=== PATIENT | female | born 1985 | race Caucasian/White ===

== ENCOUNTER 2018-07-14 06:23 | Day surgery (SDC) | payer OTHER ==
[2018-07-14] MEDS ORDERED: Ringers Lactate 1,000 ML IV ONE ×2 (06:52→09:10)
[2018-07-14] MEDS ORDERED: CEFOXITIN/SWI 1gm 1 GM/10 ML SYR ONE (06:52)
[2018-07-14] MEDS ORDERED: FENTANYL CITR 100 MCG/2 ML ONE ×2 (07:33→08:17)
[2018-07-14] MEDS ORDERED: ROCURONIUM 50 MG/5 ML VIAL IV ONE (07:33)
[2018-07-14] MEDS ORDERED: PROPOFOL 200 MG/20 ML VIAL IV ONE (07:33)
[2018-07-14] MEDS ORDERED: MIDAZOLAM HCL 2 MG/2 ML INJ ONE (07:34)
[2018-07-14] MEDS ORDERED: LIDOCAINE 1% MPF 5 ML VIAL ONE (07:34)
--- NOTE | 2018-07-14 07:39 | P.HP ---
Certification for Inpatient Patient admitted to: Observation With expected LOS: <2 Midnights Patient will require the following post-hospital care: None Practitioner: I am a practitioner with admitting privileges, knowledge of patient current condition, hospital course, and medical plan of care. Services: Services provided to patient in accordance with Admission requirements found in Title 42 Section 412.3 of the Code of Federal Regulations Patient History Date of Service: 07/14/18 History of Present Illness: This 32-year-old female presents for elective laparoscopic cholecystectomy with intraoperative cholangiogram. Allergies No Known Drug Allergies Allergy (Verified 07/14/18 07:12) Unknown Home Medications: Buproprion S.r. [Wellbutrin SR] 150 mg PO DAILY 07/13/18 - Past Medical/Surgical History Past Medical History: Patient denies medical history - Social History Alcohol use: No CD- Drugs: No Caffeine use: Yes Review of Systems 10-point ROS is otherwise unremarkable Physical Examination - Vital Signs Temperature: 99.2 F Blood Pressure: 104/72 Pulse: 81 Respirations: 16 - Physical Exam General: Alert HEENT: Sclerae nonicteric Respiratory: Clear to auscultation bilaterally Cardiovascular: Normal S1 S2 (Patient has mild right upper quadrant and epigastric discomfort but no guarding or rebound. Negative Lockett's sign) - Studies Imagings Data: Has documented chronic cholecystitis Assessment and Plan - Plan This patient has chronic cholecystitis. I will take her to the operating room for laparoscopic cholecystectomy with intraoperative cholangiogram. The risks of this procedure have been discussed. The possibility of bleeding, infection, injury to bile ducts blood vessels and intestines has been described. The possible need for an open and/or further surgeries and procedures was discussed. She understands and wants us to proceed. Discharge Plan: Home Plan to discharge in: 24 Hours - Advance Directives Does patient have a Living Will: Yes Does patient have a Durable POA for Healthcare: No
[2018-07-14] MEDS ORDERED: DEXAMETHASONE 10 MG/ML VIAL ONE (07:56)
[2018-07-14] MEDS ORDERED: GLYCOPYRROLATE 0.2 MG/ML SYR ONE ×2 (08:30)
[2018-07-14] MEDS ORDERED: NEOSTIGMINE 1 MG/ML -10 ML VIAL ONE (08:30)
[2018-07-14] MEDS ORDERED: KETOROLAC 30 MG/ML INJ ONE (08:30)
[2018-07-14] MEDS ORDERED: ONDANSETRON 4 MG/2 ML VIAL ONE (08:30)
--- NOTE | 2018-07-14 08:45 | P.OP ---
Preoperative diagnosis: Cholecystitis Postoperative diagnosis: The same Primary procedure: Laparoscopic cholecystectomy Secondary procedure: Intraoperative cholangiogram Anesthesia: General Estimated blood loss: Less than 10 cc Specimen: 1 gallbladder and contents Operative Technique: The patient was brought to the operating room placed supine on the table. After the induction of adequate general endotracheal anesthesia, the area of the abdomen was prepped with a DuraPrep solution, and she was draped in usual aseptic manner. A subumbilical incision was made. This brought down through the skin and subcutaneous tissue. The Visiport was now used to enter the peritoneal cavity. A pneumoperitoneum was created to a pressure of 12 mm of mercury. Under direct vision a 5 mm trocar was placed in the upper midline, and 2 other 5 mm trocars on the right lateral side of the abdomen. The patient having mean placed in reverse Trendelenburg and rolled to the left we could now see the right upper quadrant. We could see a chronically inflamed gallbladder. A grasper was placed on the fundus. After elevating the liver another was placed down by Abram's pouch. Applying lateral traction we were able to dissect down and expose the cystic duct and artery. Having obtained the critical view a clip was placed between the gallbladder and the cystic duct. An opening was made into the cystic duct through which we obtained a normal intraoperative cholangiogram. Our initial film showed the balloon in the common bile duct and on deflating the balloon were able to easily filled extrahepatic biliary tree the catheter was removed. Clips were placed on the distal portion of the cystic duct. The cystic artery was clipped and divided as well. At this point the gallbladder was now dissected free from the liver bed, placed into an Endo- Catch and brought out through the umbilical trocar site. With a 5 mm trocar in the upper portion of the abdomen under direct vision we were able to approximate the facile defect at the umbilicus. This was then using the Endo Close an absorbable suture. The anterior abdominal wall was blocked with 0.25% Marcaine. The irrigating fluid was aspirated from the peritoneal cavity, the pneumoperitoneum was collapsed, and shanna were applied to the skin. At the end of the procedure she was stable when sent to the recovery room. Needle sponge instrument count were correct. No drains were placed. Complications: None Transferred to: Recovery Room Condition: Good
[2018-07-14] MEDS: HYDROMORPHONE HCL 1 MG/ML INJ ONE ×3 (08:56→09:04)
[2018-07-14] MEDS: PROMETHAZINE 25 MG/ML VIAL ONE ×2 (08:59→09:04)
[2018-07-14 09:13] VITALS: O2SAT 100
[2018-07-14] MEDS ORDERED: MORPHINE 4 MG/ML SYR IV PRN (09:17)
[2018-07-14] MEDS ORDERED: Ringers Lactate 1,000 ML IV SCH (09:17)
[2018-07-14] MEDS ORDERED: ONDANSETRON 4 MG/2 ML VIAL IV PRN (09:17)
[2018-07-14] MEDS ORDERED: HYDROMORPHONE HCL 1 MG/ML INJ ONE (09:48)
[2018-07-14 10:24] VITALS: BMI 22.4
--- NOTE | 2018-07-14 11:00 | RAD REPORT ---
EXAM DESCRIPTION: RAD - Cholangiogram Oper-Xray Or - 07/14/2018 10:33 am CLINICAL HISTORY: [facility] COMPARISON: Abdomen Exam Complete dated 04/20/2018 FINDINGS: Cystic duct injection was performed by referring surgeon. Common bile duct is normal calib er without evidence of a common bile duct stone. Total fluoro time: 0.1 minutes.
[2018-07-14] MEDS: HYDROCODONE/APAP 7.5/325 MG TAB PO PRN ×2 (13:51→18:19)
[2018-07-14 17:49] VITALS: BP 105/69; TEMP 98.7
== END 2018-07-14 18:50 | disposition home or self-care (01) ==
LOC: OR 06:23 → 2ND 09:29 → OR 18:50
PROVIDERS: ATTEND Surgery
PROC: BF0CYZZ Plain Radiography of Hepatobiliary System, All using Other Contrast (ICD-10-PCS; 2018-07-14)
PROC: 0FT44ZZ Resection of Gallbladder, Percutaneous Endoscopic Approach (ICD-10-PCS; principal; 2018-07-14 07:30)
DX: K81.1 Chronic cholecystitis (principal); F32.9 Major depressive disorder, single episode, unspecified; F17.200 Nicotine dependence, unspecified, uncomplicated
CPT/HCPCS: 74300; 81025; 88304; J1100; J1170; J2250; J2405; J2550; J2704; J2710; J3010